=== PATIENT | female | born 1990 | race Caucasian/White ===

== ENCOUNTER 2020-08-20 03:23 | Emergency (ER) | payer BC ==
[~2020-08-20] VITALS: Ht 175.3 cm; Wt 81.6 kg
--- NOTE | 2020-08-20 03:41 | NUR ---
ED Nurse Note: pt ambulated into ed from home CO mosquito bite on inner left thigh x 2 days with redness and swelling with pain 2/10. changed into gown. patient ao4 with steady gait. vitals stable. presents with no acute distress. all safety measures met.
[2020-08-20] MEDS ORDERED: Clindamycin 150mg cap ORAL STA (03:44)
[2020-08-20 03:45] VITALS: BP 126/66
[2020-08-20] MEDS ORDERED: Cephalexin 500mg cap ORAL ONE (03:45)
[2020-08-20] MEDS ORDERED: Bacitracin Oint UD TOPIC ONE (03:45)
--- NOTE | 2020-08-20 03:46 | Emergency Room Report ---
History of Present Illness General Chief Complaint: Skin Rash/Abscess Source: Patient Present Illness HPI The patient presents with an insect bite in the left medial thigh. This happened on Sunday. She had a previous one on her lower knee that is getting better but this upper one is worsening. She latesha a [place] around the redness and the redness is expanding beyond that. She is been taking Claritin and Be nadryl. She is felt feverish without documented temperature. She states that pain is approximately 2/10 at this time. She was in [place] when she first noticed this. She was wearing jeans which cover the area. She is concerned about exposure to West Nile virus. She denies any tick bites recently. No swollen lymph nodes. No calf tenderness. Her last tetanus vaccination was in 2017. Last menstruation early this month and normal for her. She does not believe she is . She denies exposure to Covid positive contacts. She denies diabetes. 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 Period: 07/31/2020 Now: No : 0 Para: 0 Reviewed Nursing Documentation: PMH: Agreed; PSxH: Agreed Nursing Documentation-PMH Past Medical History: No Stated History Review of Systems Constitutional: Reports: see HPI Genitourinary: Reports: see HPI Musculoskeletal: Denies: joint pain Skin: Reports: see HPI Endocrine: Reports: see HPI Hematologic/Lymphatic: Reports: see HPI Physical Exam Vital Signs Date Time Temp Pulse Resp B/P (MAP) Pulse Ox O2 Delivery O2 Flow Rate FiO2 08/20/20 03:23 97.3 86 18 126/66 (86) 97 Room Air Sp02 EP Interpretation: reviewed, normal General Appearance: well appearing, no apparent distress, GCS 15 Head: normocephalic Eyes: bilateral eye normal inspection, bilateral eye PERRL, bilateral eye EOMI ENT: other - Wearing a mask Neck: normal inspection Respiratory: normal inspection, lungs clear, normal breath sounds Cardiovascular #1: regular rate, rhythm Cardiovascular #2: 2+ radial (R) Gastrointestinal: normal inspection Musculoskeletal: gait/station normal Neurologic: alert, grossly normal Psychiatric: mood/affect normal Skin: warm/dry, other - 5 cm circular erythematous lesion left medial thigh with central roughening of skin without fluctuance or induration. Left medial knee also with circular lesion that is approximately 1-1/2 cm Lymphatic: no adenopathy Medical Decision Making Diagnostic Impression: Primary Impression: Cellulitis Qualified Codes: L03.116 - Cellulitis of left lower limb ER Course Patient presents with area of erythema without fluctuance noted left upper thigh. Differential includes cellulitis, bite reaction, early abscess amongst others. Based on the appearance of the exam this appears to be cellulitis that may have mixed organisms with both staph and strep. Patient's tetanus is up-to-date. There is no suggestion of West Nile virus based on this rash and the patient's symptoms. No suggestion of Lyme disease. Patient declines pain medication right now. He is allergic to sulfa and therefore will be treated with clindamycin and Keflex. In addition topical antibiotics will be used. Discussed anticipated disease course. Discussed treatment plan. Patient stable for outpatient observation and treatment. Last Vital Signs Date Time Temp Pulse Resp B/P (MAP) Pulse Ox O2 Delivery O2 Flow Rate FiO2 08/20/20 03:55 97.3 88 18 126/66 97 Room Air Status: improved Disposition: HOME, SELF-CARE Condition: Improved Scripts Bacitracin (Bacitracin) 28.4 Gm Oint...g. 1 APPLIC TOPIC BID, #20 GM Prov: Constantin Mcginnis MD 08/20/20 Clindamycin Hcl (CLINDAMYCIN HCL) 300 Mg Capsule 300 MG ORAL FOUR TIMES A DAY, #28 CAP Prov: Constantin Mcginnis MD 08/20/20 Cephalexin* (KEFLEX*) 500 Mg Tablet 500 MG ORAL EVERY 6 HOURS, #28 CAP Prov: Constantin Mcginnis MD 08/20/20 Referrals: NOT CHOSEN IPA/,REFERRING (PCP) Constantin Mcginnis MD Aug 20, 2020 03:46
[2020-08-20] MEDS ORDERED: CLINDAMYCIN HC300 MG ORAL (03:50)
[2020-08-20] MEDS ORDERED: CEPHALEXIN500 M1 ORAL (03:50)
[2020-08-20] MEDS ORDERED: BACITRACIN15 GM TOPIC (03:50)
[2020-08-20 03:55] VITALS: BP 126/66
--- NOTE | 2020-08-20 03:55 | NUR ---
ER DISCHARGE NOTE: Patient is cleared to be discharged per ERMD, pt is aox4, on room air, with stable vital signs. pt was given dc and prescription instructions, pt was able to verbalize understanding, pt id band removed. pt is able to ambulate with steady gait. pt took all belongings.
== END 2020-08-20 03:55 | disposition home or self-care (01) ==
LOC: EMR 03:42
DX: L03.116 Cellulitis of left lower limb (principal); Z88.6 Allergy status to analgesic agent; Z88.2 Allergy status to sulfonamides; Z91.013 Allergy to seafood
CPT/HCPCS: 99282